=== PATIENT | male | born 1995 | race American Indian/Alaskan Native ===

== ENCOUNTER 2017-09-04 11:06 | Emergency (ER) | payer BC ==
[2017-09-04] MEDS ORDERED: Sodium Chloride 0.9% 1,000 ML IV ONE (11:50)
--- NOTE | 2017-09-04 11:58 | C.PDOC ---
History Of Present Illness Patient is a 22 year old male with no significant past medical history presenting with complaints of lower abdominal pain beginning this morning. Patient reports RLQ and LLQ pain and increased frequency of urination. He notes he is sexually active. Patient denies dysuria, hematuria, back pain, scrotal pain, scrotal swelling, or penile discharge. Time Seen by Provider: 09/04/17 11:43 Chief Complaint (Nursing): Abdominal Pain History Per: Patient History/Exam Limitations: no limitations Onset/Duration Of Symptoms: Hrs Current Symptoms Are (Timing): Still Present Location Of Pain/Discomfort: RLQ, LLQ Radiation Of Pain To:: None Quality Of Discomfort: "Pain" Associated Symptoms: Other (increased frequency ). denies: Fever, Chills, Nausea, Vomiting Exacerbating Factors: None Alleviating Factors: None Recent travel outside of the [place]: No Past Medical History Reviewed: Historical Data, Nursing Documentation, Vital Signs Vital Signs: Last Vital Signs Temp 98.1 F 09/04/17 15:35 Pulse 60 09/04/17 15:35 Resp 18 09/04/17 15:35 BP 119/74 09/04/17 15:35 Pulse Ox 99 09/04/17 16:33 Family History: States: Unknown Family Hx - Social History Hx Alcohol Use: Yes Hx Substance Use: Yes - Immunization History Hx Tetanus Toxoid Vaccination: No Hx Influenza Vaccination: No Hx Pneumococcal Vaccination: No Review Of Systems Constitutional: Negative for: Fever, Chills Cardiovascular: Negative for: Chest Pain Respiratory: Negative for: Shortness of Breath Gastrointestinal: Positive for: Abdominal Pain. Negative for: Nausea, Vomiting , Diarrhea Genitourinary: Positive for: Frequency. Negative for: Dysuria, Hematuria, Scrotal Pain, Penile Pain Musculoskeletal: Negative for: Back Pain Physical Exam - Physical Exam Appears: Non-toxic, No Acute Distress Skin: Warm, Dry Head: Atraumatic Eye(s): bilateral: Normal Inspection Oral Mucosa: Moist Neck: Supple Chest: Symmetrical, No Deformity Cardiovascular: Rhythm Regular, No Murmur Respiratory: No Rales, No Rhonchi, No Wheezing, Other (clear to auscultation bilaterally ) Gastrointestinal/Abdominal: Soft, Tenderness (LLQ tenderness), No Distention, No Guarding, No Rebound Male Genital: No Testicular Tenderness, No Testicular Swelling, No Inguinal Tenderness, No Scrotal Swelling, Circumcised Extremity: Normal ROM, No Tenderness Neurological/Psych: Oriented x3 ED Course And Treatment - Laboratory Results Result Diagrams: 09/04/17 12:16 09/04/17 12:16 O2 Sat by Pulse Oximetry: 99 (RA) - CT Scan/US CT Abdomen and Pelvis W/O Contrast Other Rad Studies (CT/US): Read By Radiologist, Radiology Report Reviewed CT/US Interpretation: FINDINGS: LOWER THORAX: Unremarkable. LIVER: Unremarkable. No gross lesion or ductal dilatation. GALLBLADDER AND BILE DUCTS : Unremarkable. PANCREAS: Unremarkable. No gross lesion or ductal dilatation. SPLEEN: Unremarkable. Splenule. ADRENALS: Unremarkable. No mass. KIDNEYS AND URETERS: Unremarkable. No hydronephrosis. No solid mass. VASCULATURE: Unremarkable. No aortic aneurysm. BOWEL: Distended loops of small bowel seen throughout the abdomen, nonspecific. This may represent an enteritis. Clinical correlation. APPENDIX: Unremarkable. Normal appendix. PERITONEUM: Unremarkable. No free fluid. No free air. LYMPH NODES: Few shotty inguinal and para-aortic lymph nodes. Left inguinal lymph node measures up to 1.9 centimeters. BLADDER: Unremarkable. REPRODUCTIVE: Unremarkable. BONES: No acute fracture. OTHER FINDINGS: None. IMPRESSION: Distended loops of small bowel seen throughout the abdomen, nonspecific. This may represent an enteritis. Clinical correlation. Few shotty inguinal and para- aortic lymph nodes. Left inguinal lymph node measures up to 1.9 centimeters. Clinical correlation. Medical Decision Making Medical Decision Making: Abdomen Pelvis CT and labs were ordered. Patient was given Toradol and IV fluids. 12:49PM UA positive. Covered with ceftriaxone and azithromycin. 4:04PM CT as above. Spoke with parent and patient about CT results. Made aware of enteritis on CT. Aware of ua consistent with uti and that he has been treated for gonorrhea and chlamydia. Will dc with antibiotics for uti and patient to follow-up with urology and return with any worsening symptoms. On reevaluation has soft NT/ND abdomen. Called and made aware of lymphadenopathy and will follow -up. Disposition - Disposition Referrals: Harman Mackey MD [Staff Provider] - Disposition: HOME/ ROUTINE Disposition Time: 16:04 Condition: GOOD Additional Instructions: Follow-up with urology for further evaluation. Take full course of antibiotics. Return to ED if condition worsens. Prescriptions: Ciprofloxacin HCl [Cipro] 500 mg PO BID #20 tablet Instructions: Urinary Tract Infection in Men (ED), Enteritis (ED) Forms: [employer] ([place]) - Clinical Impression Clinical Impression: UTI (urinary tract infection), Enteritis - Scribe Statement The provider has reviewed the documentation as recorded by the Ciaraibmaliha Carroll All medical record entries made by the [place] were at my direction and personally dictated by me. I have reviewed the chart and agree that the record accurately reflects my personal performance of the history, physical exam, medical decision making, and the department course for this patient. I have also personally directed, reviewed, and agree with the discharge instructions and disposition.
[2017-09-04] MEDS ORDERED: Sodium Chloride 0.9% 1,000 ML ONE (12:08)
[2017-09-04 12:20] LABS: BASO # 0.1 K/uL (0.0-0.2); BASO % 0.8 % (0.0-2.0); EOS # 0.1 K/uL (0.0-0.7); HEMATOCRIT 41.6 % (35.0-51.0); LYMPH % 18.3 % (20.0-40.0); MEAN CELL VOLUME 90.6 fL (80.0-94.0); MEAN CORPUSCULAR HGB CONC 33.1 g/dL (33.0-37.0); MEAN PLATELET VOLUME 8.4 fL (7.2-11.7); MONO # 0.7 K/uL (0.0-0.8); MONO % 5.9 % (0.0-10.0); RED CELL DISTRIBUTION WIDTH 12.7 % (11.5-14.5); WHITE BLOOD COUNT 11.1 K/uL (4.8-10.8)
[2017-09-04 12:32] LABS: RBC URINE 42 /hpf (0-3); URINE BACTERIA RARE (<OCC); URINE BILIRUBIN NEGATIVE (NEGATIVE); URINE BLOOD 1+ (NEGATIVE); URINE COLOR Yellow (YELLOW); URINE GLUCOSE (UA) NORMAL (Normal); URINE KETONE NEGATIVE (NEGATIVE); URINE LEUKOCYTE ESTERASE 3+ Leu/uL (Negative); URINE PROTEIN NEGATIVE (NEGATIVE); URINE UROBILINOGEN NORMAL mg/dL (0.2-1.0); WBC CLUMPS MOD /hpf; WBC URINE 446 /hpf (0-5)
[2017-09-04 12:36] LABS: CHLORIDE 101 mmol/L (98-107); SODIUM 139 mmol/L (132-148)
[2017-09-04 12:37] LABS: POTASSIUM 4.3 mmol/L (3.6-5.2)
[2017-09-04 12:39] LABS: ALKALINE PHOSPHATASE 56 U/L (38-126); ALT/SGPT 30 U/L (21-72); AST/SGOT 19 U/L (17-59); BILIRUBIN,TOTAL 0.6 mg/dL (0.2-1.3); BLOOD UREA NITROGEN 13 mg/dL (9-20); CARBON DIOXIDE 28 mmol/L (22-30); GFR AFRICAN-AMERICAN > 60; GLUCOSE,RANDOM 75 mg/dL (75-110); PHOSPHOROUS 3.6 mg/dL (2.5-4.5)
[2017-09-04 12:40] LABS: CALCIUM 9.1 mg/dl (8.6-10.4); MAGNESIUM 1.9 mg/dL (1.6-2.3)
[2017-09-04] MEDS ORDERED: cefTRIAXone (Rocephin) 250 mg Inj IM STA (12:47)
[2017-09-04] MEDS ORDERED: Iodixanol 320 MG/ML 100 ML BOTTLE IV ONE (14:20)
[2017-09-04 15:41] VITALS: BP 119/74; PULSE 60; RESP 18; TEMP 98.1
--- NOTE | 2017-09-04 16:00 | CT ---
PROCEDURE: CT Abdomen and Pelvis without intravenous contrast HISTORY: Right lower quadrant abdominal pain COMPARISON: None. TECHNIQUE: Multiple contiguous axial images were performed through the abdomen pelvis without the use of intravenous contrast. Subsequently, sagittal and coronal reformatted images were obtained. Radiation dose: Total exam DLP = 471 mGy-cm. This CT exam was performed using one or more of the following dose reduction techniques: Automated exposure control, adjustment of the mA and/or kV according to patient size, and/or use of iterative reconstruction technique. FINDINGS: LOWER THORAX: Unremarkable. LIVER: Unremarkable. No gross lesion or ductal dilatation. GALLBLADDER AND BILE DUCTS: Unremarkable. PANCREAS: Unremarkable. No gross lesion or ductal dilatation. SPLEEN: Unremarkable. Splenule. ADRENALS: Unremarkable. No mass. KIDNEYS AND URETERS: Unremarkable. No hydronephrosis. No solid mass. VASCULATURE: Unremarkable. No aortic aneurysm. BOWEL: Distended loops of small bowel seen throughout the abdomen, nonspecific. This may represent an enteritis. Clinical correlation. APPENDIX: Unremarkable. Normal appendix. PERITONEUM: Unremarkable. No free fluid. No free air. LYMPH NODES: Few shotty inguinal and para-aortic lymph nodes. Left inguinal lymph node measures up to 1.9 centimeters. BLADDER: Unremarkable. REPRODUCTIVE: Unremarkable. BONES: No acute fracture. OTHER FINDINGS: None. IMPRESSION: Distended loops of small bowel seen throughout the abdomen, nonspecific. This may represent an enteritis. Clinical correlation. Few shotty inguinal and para-aortic lymph nodes. Left inguinal lymph node measures up to 1.9 centimeters. Clinical correlation.
[2017-09-04 16:07] VITALS: O2SAT 99
== END 2017-09-04 16:15 | disposition home or self-care (01) ==
LOC: C.ER 11:06
DX: N39.0 Urinary tract infection, site not specified (principal); K52.9 Noninfective gastroenteritis and colitis, unspecified
CPT/HCPCS: 74177; 80053; 81001; 83690; 83735; 84100; 85025; 87491; 87591; 96361; 96372; 96374; 99285; J0696; J1885; J7040; Q9967